=== PATIENT | female | born 1950 | race Caucasian/White ===

== ENCOUNTER 2016-07-18 18:02 | Emergency (ER) | payer OTHER ==
[2016-07-18 18:09] VITALS: TEMP 97.7
[2016-07-18] MEDS ORDERED: IOPAMIDOL (ISOVUE 370) 75 ML BTL IV ONE (18:37)
--- NOTE | 2016-07-18 19:24 | EDPHY ---
H & P Time Seen by Provider: 07/18/16 18:57 HPI/ROS: CHIEF COMPLAINT: Elevated D-dimer. HISTORY OF PRESENT ILLNESS: The patient is a 65 year old female, sent here by her PCP, Dr. Mendez due to elevated d-dimer. The patient saw here PCP today for new onset of chest discomfort. She reports chest tightness that feels similar to a discomfort she feels when she is stressed. She had a full cardiac workup for a similar discomfort 3 years ago that was negative. The patient usually resides in [place], but lives here for a few months of the year. When in [place] she reports the chest tightness occurs and is exacerbated when going up the stairs or hiking. This morning she had an episode of chest pressure after eating , she took a Nitro and her pain was alleviated after less than 5 minutes. She typically gets chest pain stress, exertion or after eating. This pattern has not changed in the past 3 years. She denies lower extremity pain or swelling. The patient takes an Aspirin daily. REVIEW OF SYSTEMS: Aside from elements discussed in the HPI, a comprehensive 10-point review of systems was reviewed and is negative. Past Medical/Surgical History: Hypertension, High cholesterol. SAH 2013, Aneurism. Social History: Lives in [place] for most of the year. Daughter at bedside. Smoking Status: Never smoked Physical Exam: General Appearance: Alert, no distress Eyes: Pupils equal and round, no conjunctival pallor or injection ENT, Mouth: Mucous membranes moist Neck: Normal inspection Respiratory: Lungs are clear to auscultation Cardiovascular: Regular rate and rhythm Gastrointestinal: Abdomen is soft and non-tender Neurological: A&O, nonfocal, normal gait Skin: Warm and dry, no rash Extremities: Nontender, no pedal edema Psychiatric: Mood and affect normal Constitutional: Initial Vital Signs Temperature (C) 36.5 C 07/18/16 18:03 Heart Rate 64 07/18/16 18:03 Respiratory Rate 18 07/18/16 18:03 Blood Pressure 183/89 H 07/18/16 18:03 O2 Sat (%) 93 07/18/16 18:03 O2 Delivery Mode Room Air Allergies/Adverse Reactions: nitrofurantoin [From Macrobid] Allergy (Severe, Verified 07/18/16 18:10) Vomiting nitrofurantoin macrocrystalline [From Macrobid] Allergy (Severe, Verified 18:10) Vomiting papaya Allergy (Severe, Verified 07/18/16 18:10) Vomiting passion fruit Allergy (Severe, Verified 07/18/16 18:10) Anaphylaxis Home Medications: Medication Instructions Recorded Atenolol 07/18/16 Atorvastatin Calcium 07/18/16 HCTZ (*) 07/18/16 Losartan Potassium 07/18/16 Medical Decision Making - Diagnostics EKG Interpretation: EKG interpreted by me reveals normal sinus rhythm, rate 72, no ST or T segment changes. Imaging: Study: CTA of the chest. Indication: Chest pain, Elevated d-dimer. Results: Negative for PE. The study was read by the radiologist, Dr. Mills. I viewed the images myself on the PACS system. ED Course/Re-evaluation: This patient presents for CT pulmonary angiogram to rule out pulmonary embolism. She is reluctant to have a CT scan and requested a repeat D-dimer. D -dimer remains elevated here at 0.61. The patient agrees to CT scan, which was subsequently read as negative for pulmonary embolism. Clinically however, her history is more concerning for angina, with exertional chest pain. She states that she has had exertional chest pain for 3 years whenever she comes to [place]. Stat EKG reveals no evidence of ischemia or dysrhythmia. Admission was strongly advised though the patient refuses. She states that she a follow- up appointment with the hotel valet attendant tomorrow. She will return to the emergency department for recurrent chest pain or any concerns. Differential Diagnosis: Differential diagnosis includes though it is not limited to pneumonia, pneumothorax, pulmonary embolism, aortic dissection, pericarditis, acute coronary syndrome. - Data Points Laboratory Results: 07/18/16 18:35 D-Dimer 0.61 H ug/mLFEU (0.00-0.50) Troponin I < 0.012 ng/mL (0-0.034) NT-Pro-B Natriuret Pep 185 H pg/mL (0-125) Departure - Departure Disposition: Home, Routine, Self-Care Clinical Impression: Chest pain Qualifiers: Qualifier Code: (R07.9) Chest pain, unspecified Condition: Good Instructions: Chest Pain (ED) Additional Instructions: Followup with Dr. White tomorrow as scheduled. Your blood pressure is running high tonight. Have your blood pressure rechecked. Return to the Emergency Department with recurrent chest pain or any other concerns. Referrals: Lili Mendez MD [Primary Care Provider] - As per Instructions Chucky White MD [Medical Doctor] - As per Instructions Report Scribed for: Phuong Valle Report Scribed by: Gill Huerta Date of Report: 07/18/16 Time of Report: 19:21 Physician Review and Approval Statement: 07/18/16 19:21 Portions of this note were transcribed by a medical staffing coordinator. I personally performed the history, physical exam, and medical decision-making; and confirmed the accuracy of the information in the transcribed note.
[2016-07-18 19:35] LABS: TROPONIN I < 0.012 ng/mL (0-0.034)
[2016-07-18 19:38] VITALS: RESP 16; O2SAT 95
--- NOTE | 2016-07-18 21:05 | CT ---
CT Pulmonary Angiogram Clinical Indications: Chest pain in a 65-year-old female; evaluate for pulmonary embolic disease. Technique: Thinly collimated multidetector helical CT imaging was performed through the chest while 90 mL of Isovue-370 were injected intravenously without complication. The images were obtained at 4 mm thickness and reconstructed at 1.5 mm thickness. Sagittal and coronal reconstructions were perform ed. The examination is reviewed on the workstation by the interpreting physician at multiple window/l evel settings. Dose reduction techniques were utilized. Findings: Chest: The lungs are clear. Heart size is normal. There are no obvious coronary arterial calcificati ons on this nongated, contrast-enhanced study. No pericardial or pleural effusions are seen. Hilar a nd mediastinal contours are normal. There are no masses or noncalcified pulmonary nodules. The upper abdomen is negative for acute abnormality on this arterial phase study. CT Pulmonary Angiogram: The pulmonary arterial system is well opacified. No intraluminal filling d efects are seen to suggest acute or chronic thrombopulmonary embolic disease. No vascular malformatio ns are seen. The thoracic aorta has a normal contour without evidence of aneurysm or dissection. Impression: Chest negative for acute abnormality. No evidence of thrombopulmonary embolic disease. A preliminary report was called to Dr. Phuong Valle 2100 hours in the Emergency Department.
[2016-07-18 22:31] VITALS: BP 145/78; PULSE 60
== END 2016-07-18 21:45 | disposition home or self-care (01) ==
DX: R07.89 Other chest pain (principal); I10 Essential (primary) hypertension
CPT/HCPCS: Q9967

== ENCOUNTER → 2017-10-14 | Outpatient (CLI) | payer OTHER | LOC: BMCIMAGING 09:17 | PROVIDERS: ATTEND Family Medicine | DX: Z03.89 Encounter for observation for other suspected diseases and conditions ruled out (principal); W19.XXXD Unspecified fall, subsequent encounter; W25.XXXD Contact with sharp glass, subsequent encounter ==

== ENCOUNTER → 2018-10-28 | Outpatient (CLI) | payer OTHER | LOC: FIMAGING 08:35 | PROVIDERS: ATTEND Physician Assistant | DX: R10.11 Right upper quadrant pain (principal) | CPT/HCPCS: 78227; A9537 ==